=== PATIENT | male | born 1960 | race Caucasian/White ===

== ENCOUNTER → 2016-12-08 | Day surgery (SDC) | payer OTHER ==
[~2016-12-08] VITALS: Ht 185.4 cm; Wt 150.0 kg
[~2016-12-08] MED LIST: ACETAMINOPHEN 325 MG TAB PO PRN; ALPR-411 PO; ASCO100061 PO; ATROPINE SULFATE 0.1 MG/ML 5ML SYR IV PRN; CLON0.2T PO; CLOP1TAB15 PO; CRS/10 PO; HEPARIN SOD (PORCINE) 1000 UNIT/ML 10 ML VIAL ONE; HYG/25 PO; ISOS60TA25 PO; LISI-461 PO; METH2.5T PO; METO50TA16 PO; MIDAZOLAM HCL 1 MG/ML 2ML VIAL ONE; NITROGLYCERIN/D5W 100MCG/ML 20ML SYR ONE; NTRSL3 UT; NiCARDipine HCL INJ 2.5 MG/ML 10 ML AMP ONE; ONDANSETRON INJ 2 MG/ML 2 ML VIAL IV PRN; SODIUM CHLORIDE 0.9% 1000ML 1,000 ML IV SCH; SODIUM CHLORIDE 0.9% 1000ML 250 ML IV PRN; VNTHFA/IN INH
[2016-12-08 06:55] VITALS: BP 117/45; PULSE 47; TEMP 36.4; O2SAT 96; Ht 185.4 cm; Wt 150.0 kg
--- NOTE | 2016-12-08 10:33 | History & Physical Bridge Note ---
H&P Re-Evaluation Bridge Note: I have examined the patient, reviewed the History & Physical and in the interval since the performance of the History & Physical I have noted the following changes of clinical significance: No changes noted
--- NOTE | 2016-12-08 10:54 | Cardiac Catheterization ---
Procedure Note Procedure Date December 08, 2016. Pre-Procedure Diagnosis Angina AUC Score 6 Post-Procedure Diagnosis Severe CAD, Normal LV Systolic Function, Normal Intracardiac Pressures Procedure(s) Performed Coronary Angiography, Left Heart Cath, LV Angiography Lieutenant/Deputy Dr. Borja Accredited Farm Manager(s) None Estimated Blood Loss None Medication(s) Versed, Lidocaine 1% Summary of Findings Occluded proximal RCA. Left to Right Collaterals. 50% distal LMT. LAD stent patent. Normal LV function. Moderate MR Hemodynamics Rest Ao: 101/53 Final Ao: 112/57 LV: 103/7 Recommendations management recommendations (Consider high risk PCI at [facility] [place] Specimens None Radiation Exposure (mGy) 2126 Contrast (mls) 158 Procedural Complication(s) None Disposition Web Developer Holding/Recovery ACC Data Cardiac Status Clinical evaluation leading to the procedure CAD Presntation: Stable angina Anginal Classification: CCS III Heart Failure: No Cardiogenic Shock w/in 24Hrs: No Cardiac Arrest w/in 24Hrs: No Imaging studies past 6 months: Yes Stress studies past 6 months: No Coronary Anatomy Dominant: Right Left Main (% Stenosis): Mid (50) RCA (% Stenosis): Proximal (100) Left Ventricular Angiography EF (%): 60 Mitral Regurgitation: 2+ Diagnostic Status: Elective Closure Device Percutaneous Entry Location: Radial Closure Device: Radial Band
--- NOTE | 2016-12-08 10:56 | Procedure Note ---
Pre-Mod Sedation Assessment General Date of Moderate Sedation: December 08, 2016. Start 10:09. Stop 10:28. Vital Signs: Vital Signs Past 12 Hours Date Time Temp Pulse Resp B/P Pulse Ox O2 Delivery O2 Flow Rate FiO2 12/08/16 06:55 36.4 47 16 117/45 96 Room Air Review Cardiovascular: regular rate, rhythm, no edema, no gallop, no JVD, no murmur, normal peripheral pulses Abdomen: normal bowel sounds, non tender, soft, no organomegaly Lungs: lungs clear Airway Class: I Pre-Sedation Airway Assessment Oral Cavity: WNL Able to Visualize Vocal Cords: No Short Thick Neck: Yes Hx of Sleep Apnea: Yes Smoking Status: Never Smoker Mallampati Classification: Class II ASA Classification: Class I Procedure Planning Contraindications-for Mod Sed: None Yes Notes The planned sedation has been discussed with the patient and consent obtained. I have identified the patient, determined the appropriateness of sedation and have assessed the patient immediately prior to the procedure. All medicine(s) and interventions are by my order.
--- NOTE | 2016-12-08 10:57 | Procedure Note ---
Post-Mod Sedation Assessment General Date of Moderate Sedation December 08, 2016. Vital Signs: Vital Signs Past 12 Hours Date Time Temp Pulse Resp B/P Pulse Ox O2 Delivery O2 Flow Rate FiO2 12/08/16 06:55 36.4 47 16 117/45 96 Room Air Review - Discharge Criteria Vital Signs Stable: Yes Alert/Oriented/Conversant: Yes Returned to Baseline Mental St: Yes Nausea Absent/Minimal: Yes Pain/Discomfort/Absent/Minimal: Yes Normal/Baseline Respirations: Yes Active Bleeding?: Yes Pt Received D/C Instructions: Yes Prescriptions Given: None Specific Proced. D/C Criteria Distal Pulses Present (Cardiac: Yes Groin site assessed-Card Cath: Yes Voided Prior To Discharge: Yes Discharged Patients Adult Escort/Transportation: Yes
--- NOTE | 2016-12-08 12:05 | Discharge Instructions ---
Discharge Instructions Procedure Procedure Date: December 08, 2016. Reason for Visit: *Dr Borja To Do* Chest Pain. Discharge Discharge Date: December 08, 2016. Discharge Diagnosis: same Last Recorded Wt (Kilograms): 150 Anesthesia Post Anesthesia Instructions: If you have had General Anesthesia or IV Sedation: * Do not drive today. * Resume driving when surgeon permits. * Do not make important decisions or sign legal documents today. * Call surgeon for: 1. Temperature elevations greater than 101 degrees F. 2. Uncontrollable pain. 3. Excessive bleeding. 4. Persistent nausea and vomiting. 5. Medication intolerance (nausea, vomiting or rash). * For nausea and vomiting use only clear liquids such as: tea, soda, bouillon until nausea subsides, then gradually increase diet as tolerated. * If you have any concerns or questions, call your surgeon's office. If physician is unavailable and it is an emergency, call 911 or go to the nearest emergency room. Instructions Activity Recommendations: limitations Return to School/Work: with no limitations Recommended Home Diet: resume previous diet Allergies: Coded Allergies: Propofol (Unverified Allergy, Mild, GI SYMPTOMS, 12/08/16) Fluticasone (Verified Allergy, Unknown, SHORTNESS OF BREATH, 12/08/16) Salmeterol (Verified Allergy, Unknown, SHORTNESS OF BREATH, 12/08/16) Provider Instructions ACTIVITY RECOMMENDATIONS: Excess manipulation of the wrist should be avoided for the next 24-48 hours. * No lifting over 2 pounds (approximately a 1/2 gallon of milk) with the utilized arm for 24 hours. * No strenuous activity such as bowling or tennis for 3 days. * Keep the site of the procedure covered with a bandage for 24 hours. *You may shower the day after the procedure. Do not take a tub bath or submerge the puncture site in water for the next 3 days. *Do not operate any motorized equipment for 3 days. SPECIAL CARE INSTRUCTIONS: The site may be slightly bruised and sore following your procedure. Should any of the following occur, contact the DrMary who performed your procedure. 1. Redness/inflammation, swelling, chills, or fever, or colored drainage at procedure site within 3-7 days after your procedure. 2. Coldness, discoloration, ongoing numbness, severe pain, or swelling. Expect mild tingling of hand and tenderness at the puncture site for up to three days. If this persists beyond three days, or other symptoms develop, notify the Dr. who performed your procedure. BLEEDING: If the procedure site on your wrist begins to bleed, do not panic 1. Place 1 or 2 fingers firmly just slightly above the insertion site to stop the bleeding. You may be able to feel your pulse as you hold pressure. 2. Lift your finger after 5 minutes to see if the bleeding has stopped. 3. Once the bleeding has stopped, gently wipe the wrist area clean with a bandage. * If the bleeding from your wrist does not stop after 10 minutes, or if there is a large amount of bleeding or spurting, call 911 (do not drive yourself to the hospital). SKIN IRRITATION: * You may experience some redness and/or swelling in the area where radiation was administered. If any skin irritation occurs, please contact your family physician. FOLLOW UP VISIT: Keep any scheduled doctor appointments. Follow Up Follow-up with: Office will call regarding follow-up. Abril Guerin Recommendations: Call your doctor if: * Temperature above 101 degrees * Pain not relieved by pain medicine ordered * There is increased drainage or redness from any incision * You have any unanswered questions or concerns. Your Doctors Instructions noted above were prepared by provider Best Borja. Patient Signature Section: Patient Instructions Signature Page Negro Jo Patient (or Guardian) Signature/Date: I have read and understand the instructions given to me by my caregivers. Caregiver/RN/Doctor Signature/Date: The above-named patient and/or guardian has received patient instructions on this date. + Original Patient Signature Page (only) stays with chart. Please make copy for patient.
[2016-12-08 13:00] VITALS: BP 135/71; PULSE 61; O2SAT 96
--- NOTE | 2016-12-08 13:59 | CARDIAC CATH REPORT ---
PROCEDURES: 1. Left heart catheterization. 2. Coronary angiography. 3. Left ventriculography. HISTORY: This is a 56-year-old male patient with known coronary artery disease, previous stents including the LAD and most recently right coronary artery in March 2017 at [facility]. The patient presented with angina equivalent shortness of breath. PROCEDURE SUMMARY: The patient was seen and evaluated in the holding area of the medical laboratory technologist. After informed consent was obtained, the patient was taken to the cardiac catheterization lab where he was prepped and draped in the usual manner. A right transfemoral approach was utilized with a retrograde Seldinger technique. Preformed 5-[place] diagnostic catheters were utilized for the coronary angiograms. A 5-[place] pigtail catheter was utilized for the left ventriculogram. Following the procedure, the patient was returned to the holding area of the medical laboratory technologist in stable condition. CORONARY ANGIOGRAPHY: Selective injections of the left coronary artery reveal a tapering of the left main trunk to 50% distally. Under fluoroscopy, the coronary anatomy is calcified. There is evidence of a previous stent within the mid distal portion of the LAD which is patent. The left circumflex artery consists principally of first large marginal branch supplying the lateral myocardium and a second smaller marginal branch supplying the posterior myocardium. Injections of the left coronary system revealed rich collateral flow to a large distal right coronary artery. Selective injections of the right coronary artery reveal it to be occluded at its origin with evidence of previous coronary stent placed at that site. LEFT VENTRICULOGRAM: The left ventricle is of normal size with normal systolic function. There is evidence of mitral regurgitation; however, the mitral regurgitation may have been created by the catheter or by PVCs during the ventriculogram. SUMMARY: The patient has calcified coronary anatomy with diffuse nonobstructive coronary artery disease with the exception of the right coronary artery where a previous stent was placed proximally is now 100% occluded with a rich left to right collateral flow. The previous stent site in the LAD is patent. There is also a 50% tapering of the left main trunk distally. LV function appears to be preserved. RECOMMENDATIONS: We will have the CAT films reviewed in [place] for possible complete total occlusion high risk angioplasty on the right coronary artery. I will also repeat the echocardiogram before the patient leaves to go home. Our echocardiogram from the office suggested no mitral regurgitation, but on the left ventriculogram there appears to be the mitral regurgitation which may be catheter induced or PVC induced but since the patient presented with shortness of breath we should evaluate for mitral regurgitation.
--- NOTE | 2016-12-08 14:21 | ECHOCARDIOGRAM REPORT ---
*NOTICE TO RECEIVING DEMOCRAT AGENCY This information is strictly Confidential and protected under [place] law. [place] law prohibits you from making any further disclosure of this information unless further disclosure is expressly permitted by the written consent of the person to whom it pertains or is authorized by law. A general authorization for the release of medical or other information is not sufficient for this purpose. Hospital accepts no responsibility if the information is made available to any other person, INCLUDING THE PATIENT. Interpretation Summary * Name: RODO HOPSON Study Date: 12/08/2016 11:29 AM BP: 129/62 mmHg * Patient Location: C.CATH HR: 57 * : 1960 (M/d/yyyy) Gender: Male Height: 73 in * Age: 56 yrs Ethnicity: [place] Weight: 330 lb * Ordering Physician: Best Borja * Referring Physician: Best Borja * Performed By: Jessica Duong RDCS * * Reason For Study: Murmurs * BSA: 2.7 m2 * -- Conclusions -- * Aortic valve sclerosis mild, without significant aortic valvular stenosis. * Significant mitral regurgitation is absent. * Significant tricuspid regurgitation is absent. * There is mild concentric left ventricular hypertrophy. * Ejection Fraction = >70 %. Procedure Details * A complete two-dimensional transthoracic echocardiogram was performed (2D, M-mode, Doppler and color flow Doppler). * A contrast injection of Definity was performed to improve assessment of LV function. * Contrast was injected into an intravenous site in the left arm. * One vial of Definity ultrasound contrast was diluted in normal saline to a total volume of 10 ml. A total of '2' ml of solution was administered during imaging. * Lot # [id number] of Definity utilized for procedure. * Expiration date DEC 27. * The attending nurse who injected the contrast agent was Merissa Velazquez RN. Left Ventricle * The left ventricle is normal in size. * There is mild concentric left ventricular hypertrophy. * Ejection Fraction = >70 %. * The left ventricular wall motion is normal. Right Ventricle * The right ventricle is normal size. Atria * The left atrial size is normal. * Right atrial size is normal. * The interatrial septum is intact with no evidence for an atrial septal defect. Mitral Valve * There is mild to moderate mitral annular calcification. * The mitral valve leaflets appear thickened, but open well. * Significant mitral regurgitation is absent. Tricuspid Valve * The tricuspid valve is not well visualized, but is grossly normal. * Significant tricuspid regurgitation is absent. Aortic Valve * Aortic valve sclerosis mild, without significant aortic valvular stenosis. * There is no significant aortic regurgitation. Pulmonic Valve * The pulmonic valve is not well visualized. * There is no significant pulmonary regurgitation. Great Vessels * The aortic root and proximal ascending aorta are normal sized. Pericardium/Pleural * There is no pericardial effusion. MMode 2D Measurements and Calculations IVSd 1.4 cm LVIDd 4.5 cm LVIDs 2.6 cm LVPWd 1.2 cm IVS/LVPW 1.1 FS 42.4 % EDV(Teich) 94.3 ml ESV(Teich) 24.9 ml EF(Teich) 73.6 % EDV(cubed) 93.5 ml ESV(cubed) 17.8 ml EF(cubed) 80.9 % LV mass(C)d 232.1 grams LV mass(C)dI 87.2 grams/m\S\2 SV(Teich) 69.4 ml SI(Teich) 26.1 ml/m\S\2 SV(cubed) 75.7 ml SI(cubed) 28.4 ml/m\S\2 Ao root diam 3.6 cm Ao root area 10.1 cm\S\2 ACS 2.1 cm LA dimension 3.9 cm asc Aorta Diam 4.0 cm LA/Ao 1.1 LVAd ap4 33.8 cm\S\2 LVLd ap4 8.5 cm EDV(MOD-sp4) 110.9 ml EDV(sp4-el) 113.6 ml LVAs ap4 16.2 cm\S\2 LVLs ap4 6.7 cm ESV(MOD-sp4) 32.2 ml ESV(sp4-el) 33.0 ml EF(MOD-sp4) 71.0 % EF(sp4-el) 71.0 % LVAd ap2 28.9 cm\S\2 LVLd ap2 8.0 cm EDV(MOD-sp2) 86.5 ml EDV(sp2-el) 88.9 ml LVAs ap2 13.1 cm\S\2 LVLs ap2 5.3 cm ESV(MOD-sp2) 26.7 ml ESV(sp2-el) 27.3 ml EF(MOD-sp2) 69.1 % EF(sp2-el) 69.2 % LVLd %diff -6.95 % EDV(MOD-bp) 101.3 ml LVLs %diff -26.86 % ESV(MOD-bp) 32.9 ml EF(MOD-bp) 67.5 % SV(MOD-sp4) 78.8 ml SI(MOD-sp4) 29.6 ml/m\S\2 SV(MOD-sp2) 59.8 ml SI(MOD-sp2) 22.4 ml/m\S\2 SV(MOD-bp) 68.4 ml SI(MOD-bp) 25.7 ml/m\S\2 SV(sp4-el) 80.6 ml SI(sp4-el) 30.3 ml/m\S\2 SV(sp2-el) 61.5 ml SI(sp2-el) 23.1 ml/m\S\2 Doppler Measurements and Calculations MV E max leanna 78.6 cm/sec MV A max leanna 66.5 cm/sec MV E/A 1.2 MV dec time 0.30 sec Ao V2 max 164.4 cm/sec Ao max PG 10.8 mmHg Ao max PG (full) 2.6 mmHg LV V1 max PG 8.2 mmHg LV V1 max 143.1 cm/sec PA V2 max 119.4 cm/sec PA max PG 5.7 mmHg PA acc slope 595.7 cm/sec\S\2 PA acc time 0.13 sec PA pr(Accel) 20.4 mmHg
== END | disposition home or self-care (01) ==
LOC: C.CATH 06:22
PROVIDERS: ATTEND Internal Medicine Interventional Cardiology
DX: I25.10 Atherosclerotic heart disease of native coronary artery without angina pectoris (principal); E78.5 Hyperlipidemia, unspecified; F41.1 Generalized anxiety disorder; M13.0 Polyarthritis, unspecified; N18.3 Chronic kidney disease, stage 3 (moderate); I12.9 Hypertensive chronic kidney disease with stage 1 through stage 4 chronic kidney disease, or unspecified chronic kidney disease; Z82.49 Family history of ischemic heart disease and other diseases of the circulatory system; Z82.3 Family history of stroke; Z82.0 Family history of epilepsy and other diseases of the nervous system; E78.00 Pure hypercholesterolemia, unspecified; E66.9 Obesity, unspecified; I25.2 Old myocardial infarction

== ENCOUNTER 2017-01-17 14:34 | Observation (INO) | payer OTHER ==
[~2017-01-17] VITALS: Ht 182.9 cm; Wt 150.1 kg
[~2017-01-17 14:34] MED LIST changes: -ACETAMINOPHEN 325 MG TAB PO PRN; -ATROPINE SULFATE 0.1 MG/ML 5ML SYR IV PRN; -HEPARIN SOD (PORCINE) 1000 UNIT/ML 10 ML VIAL ONE; -MIDAZOLAM HCL 1 MG/ML 2ML VIAL ONE; -NITROGLYCERIN/D5W 100MCG/ML 20ML SYR ONE; -NiCARDipine HCL INJ 2.5 MG/ML 10 ML AMP ONE; -ONDANSETRON INJ 2 MG/ML 2 ML VIAL IV PRN; -SODIUM CHLORIDE 0.9% 1000ML 1,000 ML IV SCH; -SODIUM CHLORIDE 0.9% 1000ML 250 ML IV PRN
[2017-01-17 18:38] VITALS: BP 187/89; PULSE 53; TEMP 36.3; O2SAT 99; Ht 182.9 cm; Wt 150.1 kg
[2017-01-17] MEDS ORDERED: MoRPHine SULFATE 2 MG/ML CARP IV PRN (19:45)
[2017-01-17] MEDS ORDERED: ACETAMINOPHEN 325 MG TAB PO PRN (19:45)
[2017-01-17] MEDS ORDERED: ONDANSETRON INJ 2 MG/ML 2 ML VIAL IV PRN (19:45)
[2017-01-17] MEDS ORDERED: NITROGLYCERIN 0.4 MG SL PER TAB CHARGE SL PRN (19:45)
[2017-01-17 20:00] VITALS: BP 177/85; PULSE 57
[2017-01-17] MEDS ORDERED: NITROGLYCERIN 0.3 MG/1 TAB 100 TAB BTL UT PRN (20:00)
[2017-01-17] MEDS ORDERED: ALBUTEROL HFA 8 GM INHALER INH PRN (20:00)
[2017-01-17 20:14] LABS: BASO % 0.5 %; BASO ABS # 0.05 K/uL (0-0.2); COMPLETE YES; EOS % 4.4 %; IG% 0.3 %; LYMPH % 13.2 %; LYMPH ABS # 1.32 K/uL (1.2-3.4); MEAN CELL VOLUME 91.1 fL (80-100); MEAN CORPUSCULAR HGB CONC 35.1 g/dl (32-36); MEAN PLATELET VOLUME 9.8 fL (7.4-10.4); MONO % 9.7 %; NEUT % 71.9 %; PLATELET COUNT 186 K/uL (130-400); RED BLOOD COUNT 4.28 M/uL (4.7-6.1); WHITE BLOOD COUNT 10.02 K/uL (4.8-10.8)
[2017-01-17 20:25] LABS: INR 1.1 (0.9-1.1); PROTHROMBIN TIME (PATIENT) 11.4 SECONDS (9.0-12.0)
[2017-01-17 20:40] LABS: BUN/CREATININE RATIO 20.6 (10-20); CALCIUM 9.2 mg/dl (8.5-10.1); CREATININE 1.2 mg/dl (0.60-1.40); POTASSIUM 4.6 mmol/L (3.5-5.1)
[2017-01-17] MEDS ORDERED: IV FLUIDS COMPLETED PRN (20:45)
[2017-01-17] MEDS ORDERED: ASPIRIN 81 MG ECTAB PO ONE (20:45)
[2017-01-17] MEDS ORDERED: CLONIDINE HCL 0.1 MG TAB PO SCH (21:00)
[2017-01-17] MEDS: ALPRAZOLAM 0.5 MG TAB PO SCH (22:00)
[2017-01-17] MEDS: METOPROLOL TARTRATE 50 MG TAB PO SCH (22:07)
[2017-01-17] MEDS: LISINOPRIL 10 MG TAB PO SCH (22:08)
--- NOTE | 2017-01-17 22:51 | History and Physical ---
History & Physical Date & Time of Service: Jan 17, 2017 at 19:46 Chief Complaint: Elevated Troponin, Syncope Primary Care Physician: Romeo Price History of Present Illness Source: patient, clinic records, hospital records 56 yo M with severe CAD presents via transfer from [place] [facility] for NSTEMI. He was at [facility] today and reports feeling lightheaded after standing up , subsequently lost consciousness and fell into his car door and hit the pavement face first, breaking his nose. He takes ASA and Plavix and was profusely bleeding so EMS was called and he went to [place] [facility]. In the ER a troponin was elevated to 1.9. The patient was, and remains, symptom-free with respect to chest pain and shortness of breath. He does report intermittent lightheadedness for which he stops and rests, and then it will go away momentarily. He reports this became more noticeable after his Imdur was increased from 60mg to 120mg on 12/30. He has a h/o heart problems beginning in 2004 with multiple cardiac catheterizations, and subsequently received a stent in Jul 2015 and then two in Aug 2015. He then had an NSTEMI in Mar 2016 and underwent another cath with PCI. He established care with Dr. Borja in November 2016 who performed a LHC on him revealing 50% LM blockage, RCA in-stent stenosis of 100% with collateral flow, a patent stent in the LAD and diffuse non -obstructive disease. He was then referred to Dr. Flores in [place] for further assessment and options. Another diagnostic LHC was performed on 12/30, but per the patient, bypass is not an option at this point and he is left with minimal options aside from medical management. He is currently HD stable with a slightly elevated BP. He is ambulatory and is mentating well. He was admitted to telemetry for further monitoring overnight. EKG at OSH revealed SB without ST changes. Nasal lac was closed with sutures and a bandage was placed. CT head performed at OSH with disc sent. Nasal bone fracture is present with some fragmentation. No active bleeding from wound. Case was discussed with Dr. Johnson instructional support technician who will see him in the morning. Heparin therapy was discussed if needed. Past Medical/Surgical History Medical Problems: (1) CAD (coronary artery disease) Status: Chronic (2) Chronic tonsillar hypertrophy Status: Chronic (3) CKD (chronic kidney disease), stage III Status: Chronic (4) Dyslipidemia Status: Chronic (5) GCA (giant cell arteritis) Status: Chronic (6) HTN (hypertension) Status: Chronic (7) Impaired fasting glucose Status: Chronic (8) NSTEMI (non-ST elevated myocardial infarction) Status: Chronic (9) Polyarthropathy or polyarthritis of multiple sites Status: Chronic (10) Recurrent acute sinusitis Status: Chronic (11) TMJ (temporomandibular joint disorder) Status: Chronic Surgical Problems: (1) H/O umbilical hernia repair Status: Chronic Family History FH: Alzheimers disease MOTHER FH: CAD (coronary artery disease) FATHER, Onset:50 MOTHER FH: stroke FATHER Social History Smoking Status: Never Smoker Smokeless Tobacco Use: No Alcohol Use: socially Drug Use: none Marital Status: Housing status: lives with significant other Occupational Status: retired Immunizations History of Influenza Vaccine: Unknown History of Tetanus Vaccine?: Yes Tetanus Immunization Date: Dec 11, 2007 History of Pneumococcal: Unknown History of Hepatitis B Vaccine: Unknown Multi-Drug Resistant Organisms History of MDRO: No Allergies Coded Allergies: Propofol (Unverified Allergy, Mild, GI SYMPTOMS, 12/08/16) Fluticasone (Verified Allergy, Unknown, SHORTNESS OF BREATH, 12/08/16) Salmeterol (Verified Allergy, Unknown, SHORTNESS OF BREATH, 12/08/16) Home Medications Scheduled Alprazolam (Xanax), 0.5 MG PO prn Ascorbic Acid (Ascorbic Acid), 1 TAB PO DAILY Chlorthalidone (Hygroton), 1 TAB PO DAILY Clonidine Hcl (Catapres), 1 TAB PO DAILY Clopidogrel (Plavix), 75 MG PO DAILY Isosorbide Mononitrate Ext Rel (Imdur Ext Rel), 60 MG PO QAM Lisinopril (Zestril), 2 TAB PO BID Methotrexate Sodium (Methotrexate), 8 TAB PO WK Metoprolol Tartrate (Lopressor) (Lopressor), 75 MG PO BID Nitroglycerin (Nitrostat), 0.3 MG UT PRN Rosuvastatin Calcium (Crestor), 1 TAB PO DAILY Scheduled PRN Albuterol Hfa (Ventolin Hfa), 2-4 PUFFS INH Q6H PRN for prn Review of Systems At least ten systems were reviewed and negative except as indicated in HPI and patient has a headache that is intermittent. Physical Exam Vital Signs Date Time Temp Pulse Resp B/P (MAP) Pulse Ox O2 Delivery O2 Flow Rate FiO2 01/17/17 18:38 36.3 53 16 187/89 99 Room Air GEN: WNWD, in no acute distress, alert and appropriate, sitting up on edge of bed, no conversational dyspnea HEENT: trauma to nose with bandage covering sutures, hemostasis achieved, bandage is c/d/i, PERRL, normal sclerae/conjunctivae, soreness to zygomatic arches and sinuses bilaterally. Some soreness with palpation of frontal sinuses. Pharynx nonacute. CARDIO: reg rate, S1/2 heard without m/g/r LUNGS: CTA bilaterally, no crackles, rales or wheezes, good diaphragmatic excursion ABD: soft, non-tender, non-distended, +BS EXTREMITY: RP and DP palpable 2+ bilat, no LE swelling or edema, extremities are warm and well-perfused NEURO: CN 2-12 grossly intact, sensation intact throughout, coordination intact , (reflexes) knee 2/4 bilat MUSC: 5/5 strength throughout, moves all extremities equally SKIN: warm and dry and wound as above. Diagnostics Laboratory Results 01/17/17 19:57 Red Blood Count 4.28, Mean Corpuscular Volume 91.1, Mean Corpuscular Hemoglobin 32.0, Mean Corpuscular Hemoglobin Concent 35.1, Mean Platelet Volume 9.8, Neutrophils (%) (Auto) 71.9, Lymphocytes (%) (Auto) 13.2, Monocytes (%) (Auto) 9.7, Eosinophils (%) (Auto) 4.4, Basophils (%) (Auto) 0.5, Neutrophils # (Auto) 7.21, Lymphocytes # (Auto) 1.32, Monocytes # (Auto) 0.97, Eosinophils # (Auto) 0.44, Basophils # (Auto) 0.05 01/17/17 19:57 Test 01/17/17 19:36 01/17/17 19:57 White Blood Count 10.02 K/uL (4.8-10.8) Red Blood Count 4.28 M/uL (4.7-6.1) Hemoglobin 13.7 g/dL (14.0-18.0) Hematocrit 39.0 % (42-52) Mean Corpuscular Volume 91.1 fL (80-100) Mean Corpuscular Hemoglobin 32.0 pg (25-34) Mean Corpuscular Hemoglobin Concent 35.1 g/dl (32-36) Platelet Count 186 K/uL (130-400) Mean Platelet Volume 9.8 fL (7.4-10.4) Neutrophils (%) (Auto) 71.9 % Lymphocytes (%) (Auto) 13.2 % Monocytes (%) (Auto) 9.7 % Eosinophils (%) (Auto) 4.4 % Basophils (%) (Auto) 0.5 % Neutrophils # (Auto) 7.21 K/uL (1.4-6.5) Lymphocytes # (Auto) 1.32 K/uL (1.2-3.4) Monocytes # (Auto) 0.97 K/uL (0.11-0.59) Eosinophils # (Auto) 0.44 K/uL (0-0.5) Basophils # (Auto) 0.05 K/uL (0-0.2) RDW Standard Deviation 45.3 fL (36.4-46.3) RDW Coefficient of Variation 14.0 % (11.5-14.5) Immature Granulocyte % (Auto) 0.3 % Immature Granulocyte # (Auto) 0.03 K/uL (0.00-0.02) Prothrombin Time 11.4 SECONDS (9.0-12.0) Prothromb Time International Ratio 1.1 (0.9-1.1) Anion Gap 8.0 mmol/L (3-11) Est Creatinine Clear Calc Drug Dose 102.2 ml/min Estimated GFR () 76.8 Estimated GFR (Non- 66.3 BUN/Creatinine Ratio 20.6 (10-20) Calcium Level 9.2 mg/dl (8.5-10.1) Total Bilirubin 0.5 mg/dl (0.2-1) Aspartate Amino Transf (AST/SGOT) 73 U/L (15-37) Alanine Aminotransferase (ALT/SGPT) 116 U/L (12-78) Alkaline Phosphatase 116 U/L (45-117) Total Creatine Kinase 205 U/L (39-308) Creatine Kinase MB 6.2 ng/ml (0.5-3.6) Creatine Kinase MB Ratio 3.0 (0-3.0) Troponin I 1.840 ng/ml (0-0.045) Total Protein 7.5 gm/dl (6.4-8.2) Albumin 3.7 gm/dl (3.4-5.0) Globulin 3.8 gm/dl (2.5-4.0) Albumin/Globulin Ratio 1.0 (0.9-2) Diagnostic Radiology CT Head (01/17/17-OSH)-nasal fracture CXR (01/17/17-OSH)-no acute process EKG SB [address] changes. Impression Assessment and Plan 56 yo M with significant CAD presents with syncope, subsequent nasal fracture and found to have NSTEMI in local ER, transferred to [facility] for definitive care. 1. NSTEMI-patient has known significant heart disease with two recent heart catheterizations over the last two months. He was incidentally found to have an elevated troponin and has been without symptoms of chest pain or shortness of breath. The syncope, although concerning, may be related to his Imdur dosage increase after his last LHC in December. However, as this may also be related to arrythmia will watch closely on telemetry and have a low threshold to load with amiodarone per discussion with Cardiology. The patient reports only taking ASA 81 today, so will give additional ASA now and cont current medical therapy including Plavix, metoprolol, crestor, lisinopril and aspirin. Hold on starting heparin at this time unless trop rise, evidence of ischemic changes on EKG, or patient becomes symptomatic. Cards to see in am. Nitro/ Morphine PRN. NPO p MN in case of procedure in am. 2. Syncope-likely related to orthostatic hypotension related to Imdur increase with history of positional lightheadedness occurring more since this change. Decreased dose of Imdur back to 60mg. Orthostatics were negative at OSH. Monitor on telemetry overnight. Last TTE was in November and did not reveal structural heart disease with a normal EF. Repeat TTE in am. 3. HTN-slightly elevated on arrival. Will recheck after pm medications. Of note, admission med rec reveals that he is prescribed clonidine 0.2mg BID but is only taking it once daily. 4. GCA/polyarthritis-managed by Rheumatology as outpatient. Cont MTX every Wednesday. No acute issues at this time. 5. Anxiety-Xanax PRN 6. CKD III-stable, creat at baseline. Avoid nephrotoxic substances as able and renally dose meds. 7. Obesity DVT proph-heparin because of size of patient and h/o CKD FULL CODE Dispo-telemetry [facility] Care Telemetry Advanced Directives Existing Living Will: No Existing Power of Behavioral Services Tech: No Resuscitation Status FULL RESUSCITATION VTE Prophylaxis VTE Risk Assessment Done? Y/N: Yes Risk Level: Moderate Given or contraindicated: Unfractionated heparin SQ Additional Copies To Romeo Price
[2017-01-17 22:59] LABS: URINE APPEARANCE CLEAR (CLEAR); URINE BILIRUBIN NEG (NEG); URINE COLOR YELLOW; URINE NITRITE NEG (NEG); URINE PH 5.5 (4.5-7.5); URINE SPECIFIC GRAVITY 1.016 (1.000-1.030); UROBILINOGEN NEG (NEG)
[2017-01-17 23:12] LABS: MANUAL MICROSCOPIC REQUIRED? NO; REVIEW REQ? NO
[2017-01-18 00:01] VITALS: BP 168/82; PULSE 51; TEMP 36.7; O2SAT 96
[2017-01-18 02:43] LABS: CKMB/CK RATIO 2.2 (0-3.0)
[2017-01-18 04:00] VITALS: BP 179/71; PULSE 56; TEMP 36.3; O2SAT 98
[2017-01-18] MEDS: ALPRAZOLAM 0.5 MG TAB PO SCH (06:00)
[2017-01-18] MEDS ORDERED: HEPARIN SOD 5000 UNIT/0.5 ML CARP SQ SCH (06:00)
[2017-01-18 06:28] LABS: MEAN CELL VOLUME 90.9 fL (80-100); MEAN CORPUSCULAR HGB CONC 34.1 g/dl (32-36); MEAN PLATELET VOLUME 9.8 fL (7.4-10.4); PLATELET COUNT 179 K/uL (130-400); RED BLOOD COUNT 4.29 M/uL (4.7-6.1); WHITE BLOOD COUNT 9.29 K/uL (4.8-10.8)
[2017-01-18 06:56] LABS: BUN/CREATININE RATIO 22.3 (10-20); CALCIUM 9.1 mg/dl (8.5-10.1); CREATININE 1.2 mg/dl (0.60-1.40); POTASSIUM 4.5 mmol/L (3.5-5.1)
[2017-01-18 07:02] LABS: CHOLESTEROL/HDL RATIO 4.7
[2017-01-18 07:35] VITALS: BP 203/92; PULSE 55; TEMP 36.5; O2SAT 98
[2017-01-18] MEDS: LISINOPRIL 10 MG TAB PO SCH (07:52)
[2017-01-18] MEDS ORDERED: ISOSORBIDE MONONITRATE 60 MG TABCR PO SCH (09:00)
[2017-01-18] MEDS ORDERED: ROSUVASTATIN CALCIUM 10 MG TAB PO SCH (09:00)
[2017-01-18] MEDS ORDERED: ASCORBIC ACID 500 MG TAB PO SCH (09:00)
[2017-01-18] MEDS ORDERED: CHLORTHALIDONE 25 MG TAB PO SCH (09:00)
[2017-01-18] MEDS ORDERED: CLOPIDOGREL BISULFATE 75 MG TAB PO SCH (09:00)
--- NOTE | 2017-01-18 09:04 | Pre-Operative Consultation ---
History General Date of Service: Jan 18, 2017. (Kaylie Childers PA-C) HPI HPI: The patient is a 56 year old male being seen in consultation of nasal fracture. The patient has history of feeling lightheaded and subsequently falling into a car door then hitting the pavement yesterday. He went to the [place] [facility] for profuse bleeding from his nose and had 3 sutures placed along his nasal bridge, and dressing placed over remainder of nose. While there, the patient was found to have elevated troponin levels and NSTEMI and was then transferred to [facility]. He has significant cardiac history including multiple cardiac catheterizations and stenting procedures, as well as, another NSTEMI in Mar 2016. He has currently been managing his cardiac history using medical management that includes ASA and Plavix. The patient denies any difficulty breathing through his nose. He does admit to some point tenderness under his right eye. He is unsure if his nose appeared crooked before reecnt injury, but admits to a history of deviated septum. He denies CP, SOB, difficulty swallowing. Historian: patient (Kaylie Childers PA-C) Risk Assessment Daily beta benjamin use?: Yes (Kaylie Childers PA-C) Problem List Medical Problems: (1) CAD (coronary artery disease) Status: Chronic (2) Chronic tonsillar hypertrophy Status: Chronic (3) CKD (chronic kidney disease), stage III Status: Chronic (4) Dyslipidemia Status: Chronic (5) GCA (giant cell arteritis) Status: Chronic (6) HTN (hypertension) Status: Chronic (7) Impaired fasting glucose Status: Chronic (8) NSTEMI (non-ST elevated myocardial infarction) Status: Chronic (9) Polyarthropathy or polyarthritis of multiple sites Status: Chronic (10) Recurrent acute sinusitis Status: Chronic (11) TMJ (temporomandibular joint disorder) Status: Chronic Surgical Problems: (1) H/O umbilical hernia repair Status: Chronic (Kaylie Childers PA-C) Family History Family History: heart disease, vascular disease, other (alzheimers) (Kaylie Childers PA-C) Social History Hx Tobacco Use In Past Year?: No Smoking Status: Never Smoker Drug Use: none Marital status: Housing status: lives with significant other Occupation status: retired (Kaylie Childers PA-C) Immunizations Have You Had Influenza Vaccine: Unknown Have You Had Tetanus Vaccine: Yes Date Of Tetanus Immunization: Dec 11, 2007 History of Pneumococcal: Unknown History Hepatitis B Vaccine: Unknown (Kaylie Childers PA-C) Allergies Allergies: Coded Allergies: Propofol (Unverified Allergy, Mild, GI SYMPTOMS, 12/08/16) Fluticasone (Verified Allergy, Unknown, SHORTNESS OF BREATH, 12/08/16) Salmeterol (Verified Allergy, Unknown, SHORTNESS OF BREATH, 12/08/16) Medications Current Inpatient Medications Current Inpatient Medications Medications (Trade) Dose Ordered Sig/Coretta Route Start Time Stop Time Status Last Admin Dose Admin Heparin Sodium (Porcine) (Heparin Sq 5000 Unit/0.5ml) 5,000 unit Q8 SQ 01/18/17 06:00 02/17/17 05:59 01/18/17 06:32 5,000 UNIT Acetaminophen (Tylenol Tab) 650 mg Q4H PRN PO 01/17/17 19:45 02/16/17 19:44 Ondansetron HCl (Zofran Inj) 4 mg Q6H PRN IV 01/17/17 19:45 02/16/17 19:44 Nitroglycerin (Nitrostat Tab) 0.4 mg UD PRN SL 01/17/17 19:45 02/16/17 19:44 Morphine Sulfate (MoRPHine SULFATE INJ) 2 mg Q30M PRN IV 01/17/17 19:45 01/31/17 19:44 Albuterol (Ventolin Hfa Inhaler) 2 puffs Q6H PRN INH 01/17/17 20:00 02/16/17 19:59 Alprazolam (Xanax Tab) 0.5 mg Q8 PO 01/17/17 22:00 02/16/17 21:59 Chlorthalidone (Hygroton Tab) 25 mg DAILY PO 01/18/17 09:00 02/17/17 08:59 01/18/17 07:52 25 MG Clopidogrel Bisulfate (plAVix TAB) 75 mg DAILY PO 01/18/17 09:00 02/17/17 08:59 01/18/17 07:52 75 MG Isosorbide Mononitrate (Imdur Ext Rel Tab) 60 mg QAM PO 01/18/17 09:00 02/17/17 08:59 01/18/17 07:52 60 MG Lisinopril (Zestril Tab) 20 mg BID PO 01/17/17 21:00 02/16/17 20:59 01/18/17 07:52 20 MG Metoprolol Tartrate (Lopressor Tab) 75 mg BID PO 01/17/17 21:00 02/16/17 20:59 01/17/17 22:07 75 MG Nitroglycerin (Nitrostat Tab) 0.3 mg PRN PRN UT 01/17/17 20:00 02/16/17 19:59 Rosuvastatin Calcium (Crestor Tab) 10 mg DAILY PO 01/18/17 09:00 02/17/17 08:59 01/18/17 07:52 10 MG Ascorbic Acid (Vitamin C Tab) 1,000 mg QAM PO 01/18/17 09:00 02/17/17 08:59 01/18/17 07:52 1,000 MG Methotrexate (Methotrexate Tab) 20 mg Cary@0900 PO 01/24/17 09:00 02/23/17 08:59 Miscellaneous (Iv Fluids Completed) 1 ea PRN PRN N/A 01/17/17 20:45 01/17/18 20:44 (Kaylie Childers PA-C) Review of Systems Review of Systems Constitutional: no symptoms reported Eyes: reports: other (pain along bone under right eye), denies: visual changes , blurred vision, photophobia ENT: reports: nasal pain, other (feels swollen), denies: dental pain Cardiovascular: denies: no symptoms reported Respiratory: denies: no symptoms reported Gastrointestinal: denies no symptoms reported (Kaylie Childers PA-C) All Other Symptoms All Other Systems: Reviewed and Negative (Kaylie Childers PA-C) Physical Exam Physical Exam General Appearance: + WD/WN, No distress Ears, Nose, Throat: + other (bandage removed revealing sutures along nasal bridge, surgicel packed on nasal tip. No evidence of septal hematoma. evidence of soft tissue edema but nasal bones appear straingt. no tenderness to palpation along orbial rim. patient complains of numbness to cheeks and upper teeth. symmetric smile ) Neck: No abnormal inspection, No limited range of motion Respiratory: No chest tenderness, No accessory muscle use Skin Characteristics: No abnormal color, No cyanosis, No mottling (Kaylie Childers ., FRANK) Diagnostics Labs Labs Results Past 24 Hours Test 01/17/17 19:57 01/17/17 22:40 01/18/17 02:00 01/18/17 06:18 Range/Units White Blood Count 10.02 9.29 4.8-10.8 K/uL Red Blood Count 4.28 4.29 4.7-6.1 M/uL Hemoglobin 13.7 13.3 14.0-18.0 g/dL Hematocrit 39.0 39.0 42-52 % Mean Corpuscular Volume 91.1 90.9 80-100 fL Mean Corpuscular Hemoglobin 32.0 31.0 25-34 pg Mean Corpuscular Hemoglobin Concent 35.1 34.1 32-36 g/dl Platelet Count 186 179 130-400 K/uL Mean Platelet Volume 9.8 9.8 7.4-10.4 fL Neutrophils (%) (Auto) 71.9 % Lymphocytes (%) (Auto) 13.2 % Monocytes (%) (Auto) 9.7 % Eosinophils (%) (Auto) 4.4 % Basophils (%) (Auto) 0.5 % Neutrophils # (Auto) 7.21 1.4-6.5 K/uL Lymphocytes # (Auto) 1.32 1.2-3.4 K/uL Monocytes # (Auto) 0.97 0.11-0.59 K/uL Eosinophils # (Auto) 0.44 0-0.5 K/uL Basophils # (Auto) 0.05 0-0.2 K/uL RDW Standard Deviation 45.3 45.4 36.4-46.3 fL RDW Coefficient of Variation 14.0 14.0 11.5-14.5 % Immature Granulocyte % (Auto) 0.3 % Immature Granulocyte # (Auto) 0.03 0.00-0.02 K/uL Prothrombin Time 11.4 9.0-12.0 SECONDS Prothromb Time International Ratio 1.1 0.9-1.1 Sodium Level 140 137 136-145 mmol/L Potassium Level 4.6 4.5 3.5-5.1 mmol/L Chloride Level 104 104 98-107 mmol/L Carbon Dioxide Level 28 28 21-32 mmol/L Anion Gap 8.0 5.0 3-11 mmol/L Blood Urea Nitrogen 25 27 7-18 mg/dl Creatinine 1.20 1.20 0.60-1.40 mg/dl Est Creatinine Clear Calc Drug Dose 102.2 101.2 ml/min Estimated GFR () 76.8 76.8 Estimated GFR (Non- 66.3 66.3 BUN/Creatinine Ratio 20.6 22.3 10-20 Random Glucose 97 107 70-99 mg/dl Calcium Level 9.2 9.1 8.5-10.1 mg/dl Total Bilirubin 0.5 0.2-1 mg/dl Aspartate Amino Transf (AST/SGOT) 73 15-37 U/L Alanine Aminotransferase (ALT/SGPT) 116 12-78 U/L Alkaline Phosphatase 116 45-117 U/L Total Creatine Kinase 205 184 39-308 U/L Creatine Kinase MB 6.2 4.0 0.5-3.6 ng/ml Creatine Kinase MB Ratio 3.0 2.2 0-3.0 Troponin I 1.840 1.330 0-0.045 ng/ml Total Protein 7.5 6.4-8.2 gm/dl Albumin 3.7 3.4-5.0 gm/dl Globulin 3.8 2.5-4.0 gm/dl Albumin/Globulin Ratio 1.0 0.9-2 Urine Color YELLOW Urine Appearance CLEAR CLEAR Urine pH 5.5 4.5-7.5 Urine Specific Browning 1.016 1.000-1.030 Urine Protein 3+ NEG Urine Glucose (UA) NEG NEG Urine Ketones NEG NEG Urine Occult Blood 1+ NEG Urine Nitrite NEG NEG Urine Bilirubin NEG NEG Urine Urobilinogen NEG NEG Urine Leukocyte Esterase NEG NEG Urine WBC (Auto) 1-5 0-5 /hpf Urine RBC (Auto) 0-4 0-4 /hpf Urine Hyaline Casts (Auto) 1-5 0-5 /lpf Urine Epithelial Cells (Auto) 5-10 0-5 /lpf Urine Bacteria (Auto) NEG NEG Triglycerides Level 303 0-150 mg/dl Cholesterol Level 184 0-200 mg/dl HDL Cholesterol 39 mg/dl LDL Cholesterol, Calculated 84 mg/dl VLDL Cholesterol, Calculated 61 mg/dl Cholesterol/HDL Ratio 4.7 (Kaylie Childers ., FRANK) Diagnostic Radiology Diagnostic Radiology Films not available for review. Will read films when uploaded into [employer]. (Kaylie Childers ., FRANK) Impression Assessment and Plan Assessment and Plan Patient with assumed nasal fracture. Films done in [facility] and not yet available to review. On exam, there is no signficant nasal bone deviation. We explained to the patient that due to his recent NSTEMI and need for ASA and PLavix, would hold off on any surgery for now. We will see him in office in one week to remove sutures from nose and re-evaluate nasal fracture. Will have nurse remove Surgicel from nose prior to discharge to monitor for any bleeding, then have patient apply bacitracin to all wound areas. This was discussed with the patient and all questions answered. (Kaylie Childers ., GAMALC) Assessment and Plan I personally saw and examined this patient at bedside. He sustained a syncopal episode yesterday resulting in nasal fractures. Reports hx of deviated septum. Denies difficulty breathing and notes he has always had septal deviation. Exam shows tenderness over both nasal bones, bones appear midline and there is no septal hematoma. Sutures intact, superficial abrasions noted. CT images were not available at time of consultation. Recommend soap and water, bacitracin to wounds. Will allow swelling to resolve and reassess in office in 1 week. Given recent NSTEMI and chronic anticoagulation, would only plan closed reduction if patient has difficulty breathing or bones appear grossly displaced. (Mishel Johnson MD)
[2017-01-18 11:11] VITALS: BP 158/74; PULSE 56; TEMP 36.8; O2SAT 96
[2017-01-18] MEDS: METOPROLOL TARTRATE 50 MG TAB PO SCH (11:15)
--- NOTE | 2017-01-18 13:07 | ECHOCARDIOGRAM REPORT ---
*NOTICE TO RECEIVING [employer] This information is strictly Confidential and protected under [place] law. [place] law prohibits you from making any further disclosure of this information unless further disclosure is expressly permitted by the written consent of the person to whom it pertains or is authorized by law. A general authorization for the release of medical or other information is not sufficient for this purpose. Hospital accepts no responsibility if the information is made available to any other person, INCLUDING THE PATIENT. Interpretation Summary * Name: RODO HOPSON Study Date: 01/18/2017 06:56 AM BP: 179/71 mmHg * Patient Location: C.2T\S\E215\S\1 HR: 54 * : 1960 (M/d/yyyy) Gender: Male Height: 72 in * Age: 56 yrs Ethnicity: CA Weight: 337 lb * Ordering Physician: Marcela Masters * Referring Physician: Marcela Masters * Performed By: Jessica Duong RDCS * * Reason For Study: AMI * BSA: 2.7 m2 * The study was technically adequate. * -- Conclusions -- * There is mild concentric left ventricular hypertrophy. * No regional wall motion abnormalities noted. * The LV Ejection Fraction = 60-65%. * Aortic valve sclerosis mild, without significant aortic valvular stenosis. * There is mild mitral annular calcification. * There is trace mitral regurgitation. * There is mild tricuspid regurgitation. * Doppler findings do not suggest pulmonary hypertension. * Grade I diastolic dysfunction, (abnormal relaxation pattern). Procedure Details * A complete two-dimensional transthoracic echocardiogram was performed (2D, M-mode, Doppler and color flow Doppler). * A contrast injection of Definity was performed to improve assessment of LV function. * Contrast was injected into an intravenous site in the right arm. * One vial of Definity ultrasound contrast was diluted in normal saline to a total volume of 10 ml. A total of '2' ml of solution was administered during imaging. * Lot # [id number] of Definity utilized for procedure. * Expiration date FEB 26. * The attending nurse who injected the contrast agent was Serge Cowart RN. Left Ventricle * The left ventricle is normal in size. * There is mild concentric left ventricular hypertrophy. * Left ventricular systolic function is normal. * Ejection Fraction = 60-65%. * The left ventricular wall motion is normal. * No regional wall motion abnormalities noted. Right Ventricle * The right ventricle is normal size. * The right ventricular systolic function is normal as assessed by tricuspid annular plane systolic excursion (TAPSE) (normal >1.5 cm). Atria * The left atrial size is normal. * Right atrial size is normal. * There is no evidence of atrial septal defect, but resolution does not allow assessment for a patent foramen ovale. Mitral Valve * There is mild mitral annular calcification. * There is no mitral valve stenosis. * There is trace mitral regurgitation. Tricuspid Valve * The tricuspid valve is normal. * There is no tricuspid stenosis. * There is mild tricuspid regurgitation. * Doppler findings do not suggest pulmonary hypertension. Aortic Valve * The aortic valve is trileaflet. * Aortic valve sclerosis mild, without significant aortic valvular stenosis. * Aortic stenosis is absent. * There is no significant aortic regurgitation. Pulmonic Valve * The pulmonary valve is not well seen, but the Doppler examination is normal without significant regurgitation or stenosis. Great Vessels * The aortic root and proximal ascending aorta are normal sized. Pericardium/Pleural * There is no pericardial effusion. Great Vessels * Normal inferior vena cava diameter and respiratory variation suggests normal central venous pressure. Left Ventricular Diastolic Function * Grade I diastolic dysfunction, (abnormal relaxation pattern). MMode 2D Measurements and Calculations IVSd 1.2 cm LVIDd 6.2 cm LVIDs 3.9 cm LVPWd 1.1 cm IVS/LVPW 1.0 FS 37.8 % EDV(Teich) 194.4 ml ESV(Teich) 64.3 ml EF(Teich) 66.9 % EDV(cubed) 239.1 ml ESV(cubed) 57.5 ml EF(cubed) 75.9 % LV mass(C)d 308.5 grams LV mass(C)dI 116.0 grams/m\S\2 CO(Teich) 6.6 l/min CI(Teich) 2.5 l/min/m\S\2 SV(Teich) 130.1 ml SI(Teich) 48.9 ml/m\S\2 CO(cubed) 9.3 l/min CI(cubed) 3.5 l/min/m\S\2 SV(cubed) 181.5 ml SI(cubed) 68.3 ml/m\S\2 Ao root diam 2.4 cm Ao root area 4.4 cm\S\2 ACS 2.0 cm LA dimension 4.0 cm asc Aorta Diam 3.7 cm LA/Ao 1.7 LVOT diam 2.0 cm LVOT area 3.3 cm\S\2 LVAd ap4 47.1 cm\S\2 LVLd ap4 10.3 cm EDV(MOD-sp4) 180.0 ml LVAs ap4 23.7 cm\S\2 LVLs ap4 7.9 cm ESV(MOD-sp4) 58.6 ml EF(MOD-sp4) 67.4 % LVAd ap2 40.5 cm\S\2 LVLd ap2 8.6 cm EDV(MOD-sp2) 159.0 ml LVAs ap2 23.9 cm\S\2 LVLs ap2 8.1 cm ESV(MOD-sp2) 59.9 ml EF(MOD-sp2) 62.3 % CO(MOD-sp4) 6.2 l/min CI(MOD-sp4) 2.3 l/min/m\S\2 SV(MOD-sp4) 121.4 ml SI(MOD-sp4) 45.7 ml/m\S\2 CO(MOD-sp2) 5.1 l/min CI(MOD-sp2) 1.9 l/min/m\S\2 SV(MOD-sp2) 99.1 ml SI(MOD-sp2) 37.3 ml/m\S\2 Doppler Measurements and Calculations MV E max leanna 80.0 cm/sec MV A max leanna 78.6 cm/sec MV E/A 1.0 MV dec time 0.26 sec Ao V2 max 171.0 cm/sec Ao max PG 11.7 mmHg Ao max PG (full) 4.8 mmHg BALJIT(V,A) 2.5 cm\S\2 BALJIT(V,D) 2.5 cm\S\2 LV V1 max PG 6.9 mmHg LV V1 max 131.4 cm/sec PA acc slope 309.4 cm/sec\S\2 PA acc time 0.21 sec PA pr(Accel) -17.65 mmHg
--- NOTE | 2017-01-18 13:30 | Progress Note ---
Internal Med Progress Note Date of Service: Jan 18, 2017. Provider Documentation: SUBJECTIVE: Patient is doing better Denies any chest pain, SOB, sweating, palpitations, diaphoresis, headaches, blurry vision Tele- HR in 50s OBJECTIVE: Vital Signs-as noted below Exam: General-AAOX3, anxious + HEENT- Nasal fracture + Lungs-AEBE, no wheezing, rhonchi Heart-S1, S2 normal Extremities-No edema Neuro- AAOX3, No gross focal deficits. Lab data as noted below. ASSESSMENT & PLAN: 56 yo M with significant CAD presents with syncope, subsequent nasal fracture and found to have NSTEMI in local ER, transferred to [facility] for definitive care. SYNCOPE Likely secondary to Medication changes leading to decrease in BP. Recently Imdur dose was increased from 60 mg to 120 mg and since than he has been having dizziness, especially with change in position. He says he does feel it coming and most of the times was okay, but this time passed out hitting the pavement. -Tele- Sinus bradycardia which is chronic per him, but no arrhythmias noted; Orthostats negative, Echo ordered -Medication changes - Decrease Imdur to 60 mg from 120 mg. Continue rest of the home medications HYPERTENSION, UNCONTROLLED BP went up to 200s today, now down to 150s -Continue with Lisinopril 20 mg PO BID, Metoprolol 75 mg PO BID, Chlorthalidone 25 mg daily, Clonidine 0.1 mg daily which are his home medications -Monitor closely ELEVATED TROPONIN Troponin 1.840--> 1.330. Likely secondary to HTN, uncontrolled -No cardiac symptoms prior to syncope. No complaints since admission. Per patient, his troponin is always elevated. Evleia does have significant CAD with 2 recent heart caths in 2 months. Last cath in November 2016- revealing 50% LM blockage, RCA in-stent stenosis of 100% with collateral flow, a patent stent in the LAD and diffuse non-obstructive disease. Not a candidate for CABG and medical management has been recommended -Follow up Echo -Cardiology on board. NASAL FRACTURE S/P FALL -Per ortho, no plans for surgery -Surgicel applied and needs to be removed prior to discharge. Bacitracin for wound care. GCA/POLYARTHRITIS- Managed by rheumatology as outpatient -Continue with MTX every wednesday. No acute issues at this time CKD III -Stable. Baseline -Avoid nephrotoxics ANXIETY -Xanax PRN OBESITY DVT proph-heparin because of size of patient and h/o CKD FULL CODE DISPOSITION Very eager to be discharged and anxious. Requesting to be discharged by today evening/ Awaiting Echo results, cardiology inputs Vital Signs: Date Time Temp Pulse Resp B/P (MAP) Pulse Ox O2 Delivery O2 Flow Rate FiO2 01/18/17 12:00 Room Air 01/18/17 11:11 36.8 56 18 158/74 (102) 96 Room Air 01/18/17 08:00 Room Air 01/18/17 07:35 36.5 55 18 203/92 (129) 98 Room Air 01/18/17 04:00 36.3 56 20 179/71 (107) 98 Room Air 01/18/17 04:00 Room Air 01/18/17 00:15 Room Air 01/18/17 00:01 36.7 51 18 168/82 (110) 96 Room Air 01/17/17 20:00 57 177/85 (115) 01/17/17 20:00 Room Air 01/17/17 18:38 36.3 53 16 187/89 99 Room Air Lab Results: Results Past 24 Hours Test 01/17/17 19:57 01/17/17 22:40 01/18/17 02:00 01/18/17 06:18 Range/Units White Blood Count 10.02 9.29 4.8-10.8 K/uL Red Blood Count 4.28 4.29 4.7-6.1 M/uL Hemoglobin 13.7 13.3 14.0-18.0 g/dL Hematocrit 39.0 39.0 42-52 % Mean Corpuscular Volume 91.1 90.9 80-100 fL Mean Corpuscular Hemoglobin 32.0 31.0 25-34 pg Mean Corpuscular Hemoglobin Concent 35.1 34.1 32-36 g/dl Platelet Count 186 179 130-400 K/uL Mean Platelet Volume 9.8 9.8 7.4-10.4 fL Neutrophils (%) (Auto) 71.9 % Lymphocytes (%) (Auto) 13.2 % Monocytes (%) (Auto) 9.7 % Eosinophils (%) (Auto) 4.4 % Basophils (%) (Auto) 0.5 % Neutrophils # (Auto) 7.21 1.4-6.5 K/uL Lymphocytes # (Auto) 1.32 1.2-3.4 K/uL Monocytes # (Auto) 0.97 0.11-0.59 K/uL Eosinophils # (Auto) 0.44 0-0.5 K/uL Basophils # (Auto) 0.05 0-0.2 K/uL RDW Standard Deviation 45.3 45.4 36.4-46.3 fL RDW Coefficient of Variation 14.0 14.0 11.5-14.5 % Immature Granulocyte % (Auto) 0.3 % Immature Granulocyte # (Auto) 0.03 0.00-0.02 K/uL Prothrombin Time 11.4 9.0-12.0 SECONDS Prothromb Time International Ratio 1.1 0.9-1.1 Sodium Level 140 137 136-145 mmol/L Potassium Level 4.6 4.5 3.5-5.1 mmol/L Chloride Level 104 104 98-107 mmol/L Carbon Dioxide Level 28 28 21-32 mmol/L Anion Gap 8.0 5.0 3-11 mmol/L Blood Urea Nitrogen 25 27 7-18 mg/dl Creatinine 1.20 1.20 0.60-1.40 mg/dl Est Creatinine Clear Calc Drug Dose 102.2 101.2 ml/min Estimated GFR () 76.8 76.8 Estimated GFR (Non- 66.3 66.3 BUN/Creatinine Ratio 20.6 22.3 10-20 Random Glucose 97 107 70-99 mg/dl Calcium Level 9.2 9.1 8.5-10.1 mg/dl Total Bilirubin 0.5 0.2-1 mg/dl Aspartate Amino Transf (AST/SGOT) 73 15-37 U/L Alanine Aminotransferase (ALT/SGPT) 116 12-78 U/L Alkaline Phosphatase 116 45-117 U/L Total Creatine Kinase 205 184 39-308 U/L Creatine Kinase MB 6.2 4.0 0.5-3.6 ng/ml Creatine Kinase MB Ratio 3.0 2.2 0-3.0 Troponin I 1.840 1.330 0-0.045 ng/ml Total Protein 7.5 6.4-8.2 gm/dl Albumin 3.7 3.4-5.0 gm/dl Globulin 3.8 2.5-4.0 gm/dl Albumin/Globulin Ratio 1.0 0.9-2 Urine Color YELLOW Urine Appearance CLEAR CLEAR Urine pH 5.5 4.5-7.5 Urine Specific Hardy 1.016 1.000-1.030 Urine Protein 3+ NEG Urine Glucose (UA) NEG NEG Urine Ketones NEG NEG Urine Occult Blood 1+ NEG Urine Nitrite NEG NEG Urine Bilirubin NEG NEG Urine Urobilinogen NEG NEG Urine Leukocyte Esterase NEG NEG Urine WBC (Auto) 1-5 0-5 /hpf Urine RBC (Auto) 0-4 0-4 /hpf Urine Hyaline Casts (Auto) 1-5 0-5 /lpf Urine Epithelial Cells (Auto) 5-10 0-5 /lpf Urine Bacteria (Auto) NEG NEG Triglycerides Level 303 0-150 mg/dl Cholesterol Level 184 0-200 mg/dl HDL Cholesterol 39 mg/dl LDL Cholesterol, Calculated 84 mg/dl VLDL Cholesterol, Calculated 61 mg/dl Cholesterol/HDL Ratio 4.7
[2017-01-18] MEDS ORDERED: METO50TA16 PO (13:47)
--- NOTE | 2017-01-18 13:55 | Discharge Instructions ---
Discharge Instructions Date of Service Jan 18, 2017. Admission Reason for Admission: Elevated Troponin, Syncope Discharge Discharge Diagnosis / Problem: 1. Syncope 2. HTN, uncontrolled 3. Nasal fracture post fall Discharge Goals Goal(s): Diagnostic testing, Therapeutic intervention Activity Recommendations Activity Limitations: resume your previous activity . Instructions / Follow-Up Instructions / Follow-Up MEDICATION CHANGES; 1. Metoprolol decreased to 50 mg PO BID from 75 mg PO BID due to low Heart rate MONITOR BP, HR outpatient FOLLOW UP 1.Follow up with PCP in 1 weekl. Please call for appt date/time 2. Keep your appt with building construction teacher 3. Follow up with orthopedics in 1 week Current Hospital Diet Patient's current hospital diet: Low Sodium Diet (2gm Na) Discharge Diet Recommended Diet: AHA Diet (Heart Healthy), Low Sodium Diet (2gm Na) Pending Studies Studies pending at discharge: no Laboratory Results Lipid Panel Test 01/18/17 06:18 Range/Units Triglycerides Level 303 H 0-150 mg/dl Cholesterol Level 184 0-200 mg/dl HDL Cholesterol 39 mg/dl Cholesterol/HDL Ratio 4.7 LDL Cholesterol, Calculated 84 mg/dl Medical Emergencies . Who to Call and When: Medical Emergencies: If at any time you feel your situation is an emergency, please call 911 immediately. . Non-Emergent Contact Non-Emergency issues call your: Primary Care Provider, Traffic Lieutenant . . "Provider Documentation" section prepared by Arianna Alfaro. . VTE Core Measure Inpt VTE Proph given/why not?: Unfractionated heparin SQ
--- NOTE | 2017-01-18 14:07 | Discharge Summary ---
Discharge Summary Date of Service Jan 18, 2017. Discharge Summary Admission Date: Jan 17, 2017 at 19:45 Discharge Date: Jan 18, 2017 Discharge Disposition: Home Principal Diagnosis: 1. Syncope likely related to medication 2. HTN, Uncontrolled 3. Nasal fracture post fall 4. Mildly elevated troponin, likely secondary to HTN Secondary Diagnoses/Problems: 1. CKD III 2. Anxiety 3. Obesity Procedures: -Tele monitoring -Echocardiogram -Serial EKG -Serial Troponin Consultations: Cardiology Orthopedics Pending Studies/Follow-Up: Instructions / Follow-Up Instructions / Follow-Up MEDICATION CHANGES; 1. Metoprolol decreased to 50 mg PO BID from 75 mg PO BID due to low Heart rate MONITOR BP, HR outpatient FOLLOW UP 1.Follow up with PCP in 1 weekl. Please call for appt date/time 2. Keep your appt with patient support assistant 3. Follow up with orthopedics in 1 week Medication Reconciliation Changed Medications: Metoprolol Tartrate (Lopressor) (Lopressor) 50 Mg Tab 50 MG PO BID for 30 Days, #60 TAB 5 Refills (Changed from: 75 MG; 90) Continued Medications: Albuterol Hfa (Ventolin Hfa) 200 Puffs/94009 Mcg Aers 2-4 PUFFS INH Q6H PRN for prn, #1 INHALER Alprazolam (Xanax) 0.5 Mg Tab 0.5 MG PO prn, TAB Ascorbic Acid (Ascorbic Acid) 1,000 Mg Tab 1 TAB PO DAILY Chlorthalidone (Hygroton) 25 Mg Tab 1 TAB PO DAILY for 30 Days, #30 TAB 5 Refills Clonidine Hcl (Catapres) 0.2 Mg Tab 1 TAB PO DAILY for 30 Days, #30 TAB 5 Refills Clopidogrel (Plavix) 75 Mg Tab 75 MG PO DAILY, TAB Isosorbide Mononitrate Ext Rel (Imdur Ext Rel) 60 Mg Ertab 60 MG PO QAM, TAB Lisinopril (Zestril) 10 Mg Tab 2 TAB PO BID for 30 Days, #120 TAB 5 Refills Methotrexate Sodium (Methotrexate) 2.5 Mg Tab 8 TAB PO WK for 28 Days, #32 TAB 2 Refills Pt takes on Sundays Nitroglycerin (Nitrostat) 0.3 Mg Tab 0.3 MG UT PRN, BTL Rosuvastatin Calcium (Crestor) 10 Mg Tab 1 TAB PO DAILY for 30 Days, #30 TAB 5 Refills Admission Information HPI (per Admitting provider): 56 yo M with severe CAD presents via transfer from [place] [facility] for NSTEMI. He was at [employer] today and reports feeling lightheaded after standing up , subsequently lost consciousness and fell into his car door and hit the pavement face first, breaking his nose. He takes ASA and Plavix and was profusely bleeding so EMS was called and he went to [place] [facility]. In the ER a troponin was elevated to 1.9. The patient was, and remains, symptom-free with respect to chest pain and shortness of breath. He does report intermittent lightheadedness for which he stops and rests, and then it will go away momentarily. He reports this became more noticeable after his Imdur was increased from 60mg to 120mg on 12/30. He has a h/o heart problems beginning in 2004 with multiple cardiac catheterizations, and subsequently received a stent in Jul 2015 and then two in Aug 2015. He then had an NSTEMI in Mar 2016 and underwent another cath with PCI. He established care with Dr. Borja in November 2016 who performed a LHC on him revealing 50% LM blockage, RCA in-stent stenosis of 100% with collateral flow, a patent stent in the LAD and diffuse non -obstructive disease. He was then referred to Dr. Flores in [place] for further assessment and options. Another diagnostic LHC was performed on 12/30, but per the patient, bypass is not an option at this point and he is left with minimal options aside from medical management. He is currently HD stable with a slightly elevated BP. He is ambulatory and is mentating well. He was admitted to telemetry for further monitoring overnight. EKG at OSH revealed SB without ST changes. Nasal lac was closed with sutures and a bandage was placed. CT head performed at OSH with disc sent. Nasal bone fracture is present with some fragmentation. No active bleeding from wound. Case was discussed with Dr. Johnson home demonstration agent who will see him in the morning. Heparin therapy was discussed if needed. Physical Exam (per Admitting): GEN: WNWD, in no acute distress, alert and appropriate, sitting up on edge of bed, no conversational dyspnea HEENT: trauma to nose with bandage covering sutures, hemostasis achieved, bandage is c/d/i, PERRL, normal sclerae/conjunctivae, soreness to zygomatic arches and sinuses bilaterally. Some soreness with palpation of frontal sinuses. Pharynx nonacute. CARDIO: reg rate, S1/2 heard without m/g/r LUNGS: CTA bilaterally, no crackles, rales or wheezes, good diaphragmatic excursion ABD: soft, non-tender, non-distended, +BS EXTREMITY: RP and DP palpable 2+ bilat, no LE swelling or edema, extremities are warm and well-perfused NEURO: CN 2-12 grossly intact, sensation intact throughout, coordination intact , (reflexes) knee 2/4 bilat MUSC: 5/5 strength throughout, moves all extremities equally SKIN: warm and dry and wound as above. Hospital Course 56 yo M with significant CAD presents with syncope, subsequent nasal fracture and found to have NSTEMI in local ER, transferred to [facility] for definitive care. SYNCOPE Likely secondary to Medication changes leading to decrease in BP. Recently Imdur dose was increased from 60 mg to 120 mg and since than he has been having dizziness, especially with change in position. He says he does feel it coming and most of the times was okay, but this time passed out hitting the pavement. -Tele- Sinus bradycardia which is chronic per him, but no arrhythmias noted; Orthostats negative, Echo - Mild LVH, EF 60-65%, Mild TR, MR, Gd I diastolic dysfunction. -Medication changes - Decreased Imdur to 60 mg from 120 mg. Continue rest of the home medications HYPERTENSION, UNCONTROLLED BP went up to 200s today, now down to 150s. Likely not getting clonidine his home medication contributing to rebound HTN -Continue with Lisinopril 20 mg PO BID, Chlorthalidone 25 mg daily, Clonidine 0.2 mg daily which are his home medications. Metoprolol decreased to 50 mg PO BID from 75 mg PO BID due to sinus bradycardia -Monitor closely outpatient ELEVATED TROPONIN Troponin 1.840--> 1.330. Likely secondary to HTN, uncontrolled -No cardiac symptoms prior to syncope. No complaints since admission. Per patient, his troponin is always elevated. Evelia does have significant CAD with 2 recent heart caths in 2 months. Last cath in November 2016- revealing 50% LM blockage, RCA in-stent stenosis of 100% with collateral flow, a patent stent in the LAD and diffuse non-obstructive disease. Not a candidate for CABG and medical management has been recommended -Echo- no new wall motion abnormalities, EF 60-65% -Cardiology on board. Cleared for discharge. Discussed with Dr Meek NASAL FRACTURE S/P FALL -Per ortho, no plans for surgery -Surgicel applied and needs to be removed prior to discharge. Bacitracin for wound care. Follow up with ortho in 1 week GCA/POLYARTHRITIS- Managed by rheumatology as outpatient -Continue with MTX every wednesday. No acute issues at this time CKD III -Stable. Baseline -Avoid nephrotoxics ANXIETY -Xanax PRN OBESITY DVT proph-heparin because of size of patient and h/o CKD FULL CODE DISPOSITION Very eager to be discharged and anxious. Requesting to be discharged by today evening/ Very anxious and wants to leave Discussed with cardiology- cleared for discharge to home with follow up outpatient Total time spent on discharge = 28 minutes This includes examination of the patient, discharge planning, medication reconciliation, and communication with other providers. Discharge Instructions Discharge Discharge Diagnosis / Problem: 1. Syncope 2. HTN, uncontrolled 3. Nasal fracture post fall Discharge Goals Goal(s): Diagnostic testing, Therapeutic intervention Activity Recommendations Activity Limitations: resume your previous activity . Instructions / Follow-Up Instructions / Follow-Up MEDICATION CHANGES; 1. Metoprolol decreased to 50 mg PO BID from 75 mg PO BID due to low Heart rate MONITOR BP, HR outpatient FOLLOW UP 1.Follow up with PCP in 1 weekl. Please call for appt date/time 2. Keep your appt with patient support assistant Current Hospital Diet Patient's current hospital diet: Low Sodium Diet (2gm Na) Discharge Diet Recommended Diet: AHA Diet (Heart Healthy), Low Sodium Diet (2gm Na) Pending Studies Studies pending at discharge: no Laboratory Results Lipid Panel Test 01/18/17 06:18 Range/Units Triglycerides Level 303 H 0-150 mg/dl Cholesterol Level 184 0-200 mg/dl HDL Cholesterol 39 mg/dl Cholesterol/HDL Ratio 4.7 LDL Cholesterol, Calculated 84 mg/dl Medical Emergencies . Who to Call and When: Medical Emergencies: If at any time you feel your situation is an emergency, please call 911 immediately. . Non-Emergent Contact Non-Emergency issues call your: Primary Care Provider, Director Sales Training . . "Provider Documentation" section prepared by Arianna Alfaro. . VTE Core Measure Inpt VTE Proph given/why not?: Unfractionated heparin SQ
--- NOTE | 2017-01-18 14:08 | Cardiology Consultation ---
Cardiology Consultation Date of Consultation: Jan 18, 2017 History of Present Illness Negro Jo is a 56 year old male seen in cardiology consultation for the evaluation of syncope and elevated troponin. The patient's primary scheduling administrator is Dr. Borja of our practice. The patient has a complex history of ischemic heart disease as delineated below. He underwent recent diagnostic cardiac catheterization with Dr. Borja at [facility] 12/08/2016 and underwent repeat cardiac catheterization with Dr. Flores [place] [facility] [place]. Ongoing medical management was recommended at that time. Yesterday the patient was in [place], [place] at [facility]. He had an episode of lightheadedness and fell into his car door and onto the pavement with resultant facial trauma. He presented to the ER [place] CT confirmed the presence of a nasal fracture. Significant laceration to subsequent sutured. His troponin was noted to be elevated given his complex cardiac history he was transferred to [facility] for further care. The patient has a history of exertional angina and is aggressive medication therapy. At the time of his recent discharge post cardiac catheterization on his isosorbide mononitrate dose was increased from 60 mg 120 mg. The patient believes that he has felt occasional lightheadedness with standing since that medication change. He has never had any significant passing out spells prior to yesterday except maybe one episode that placed 20 years ago. At present he feels well. He is eager for discharge. Past Medical/Surgical History Problem List: PAST MEDICAL HISTORY: 1. Chronic coronary heart disease with multiple past cardiac catheterization and cardiac interventions including LAD stent July 2015 in [place], right coronary artery stents in August 2015, and again in March 2016 at which time he had a drug-eluting stent placed in the ostium of the right coronary artery. -In November 2016 he underwent repeat cardiac catheterization for exertional shortness of breath and chest pressure as performed by Dr. Borja and was found to have a chronic total occlusion of the proximal right coronary artery at the previous ostial RCA stent. Left main stenosis in the range of 50% was noted at that time with nonobstructive irregularities in the LAD system and circumflex system. -The patient was referred for repeat cardiac catheterization which took place at [facility] [place] 12[place]30[place] to evaluate his chronic total occlusion of the right coronary artery. Per review of that report status the stents in the ostium of the right coronary artery hangs into the aorta, and this is not amenable to further percutaneous intervention. [id number] collaterals were noted from the LAD and circumflex territories to feed the distal RCA territory and ongoing medication management was recommended at that time. 2. Chart history of stage III chronic kidney disease although his kidney function has been stable recently 3. 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 History of giant cell arteritis followed by [facility] rheumatology 5. History of difficult to control hypertension 6. History of obstructive sleep apnea 7. Obesity PAST SURGICAL HISTORY: Multiple past cardiac catheterizations as noted above FAMILY HISTORY: Father with ischemic heart disease diagnosed in his 50s SOCIAL HISTORY: Patient is a retired he produces served in the [employer] as well as the [employer]. He also served in the [employer] retired several years ago. He is and has never smoked or used smokeless tobacco Family History FH: Alzheimers disease MOTHER FH: CAD (coronary artery disease) FATHER, Onset:50 MOTHER FH: stroke FATHER Social History Smoking Status: Never Smoker Smokeless Tobacco Use: No Alcohol Use: socially Drug Use: none Marital Status: Housing Status: lives with significant other Occupation: retired Review Of Systems See above for pertinent positives & negatives. A total of 10 systems reviewed and were otherwise negative. Allergies Coded Allergies: Propofol (Unverified Allergy, Mild, GI SYMPTOMS, 12/08/16) Fluticasone (Verified Allergy, Unknown, SHORTNESS OF BREATH, 12/08/16) Salmeterol (Verified Allergy, Unknown, SHORTNESS OF BREATH, 12/08/16) Medications Reported Home Medications Medications Dose Route/Sig Max Daily Dose Days Date Category Dose Instructions Plavix (Clopidogrel Bisulfate) 75 Mg Tab 75 Mg PO DAILY 12/08/16 Reported Nitrostat (Nitroglycerin) 0.3 Mg Tab 0.3 Mg UT PRN 12/08/16 Reported Ventolin Hfa (Albuterol) 200 Puffs/44765 Mcg Aers 2-4 Puffs INH Q6H PRN 12/08/16 Reported Xanax (Alprazolam) 0.5 Mg Tab 0.5 Mg PO PRN 12/08/16 Reported Hygroton (Chlorthalidone) 25 Mg Tab 1 Tab PO DAILY 30 12/08/16 Reported Lopressor (Metoprolol Tartrate) 50 Mg Tab 75 Mg PO BID 30 12/08/16 Reported Crestor (Rosuvastatin Calcium) 10 Mg Tab 1 Tab PO DAILY 30 12/08/16 Reported Catapres (Clonidine Hcl) 0.2 Mg Tab 1 Tab PO DAILY 30 12/08/16 Reported Imdur Ext Rel (Isosorbide Mononitrate) 60 Mg Ertab 60 Mg PO QAM 12/08/16 Reported Ascorbic Acid 1,000 Mg Tab 1 Tab PO DAILY 12/08/16 Reported Methotrexate (Methotrexate Sodium) 2.5 Mg Tab 8 Tab PO WK 28 12/08/16 Reported Pt takes on Sundays Zestril (Lisinopril) 10 Mg Tab 2 Tab PO BID 30 12/08/16 Reported Physical Exam Vital Signs (Last 8hrs): Last 8 Hrs Date Time Temp Pulse Resp B/P (MAP) Pulse Ox O2 Delivery O2 Flow Rate FiO2 01/18/17 12:00 Room Air 01/18/17 11:11 36.8 56 18 158/74 (102) 96 Room Air 01/18/17 08:00 Room Air 01/18/17 07:35 36.5 55 18 203/92 (129) 98 Room Air General Appearance: Alert and Oriented x3. NAD. Head: Normocephalic Atraumatic. Eyes: PERRLA, EOMI, laceration on nose noted, sutured. Neck: Supple. No carotid bruits noted. No JVD. No HJD. Respiratory: Breath sounds clear to auscultation bilaterally. No w/r/r. Cardiovascular: Reg rate and rhythm. S1 and S2 noted. No murmurs, rubs, gallops. PMI non displace. Abdomen: Normal bowel sounds, soft nontender. no abdominal bruits. Extremities: No edema, no clubbing or cyanosis. distal pulses 2/4 bilaterally. Neuro: No focal deficits. Psychiatric: Normal affect. Data Last Resulted 01/18/17 06:18 Last Resulted 01/18/17 06:18 Past 24 Hours Test 01/17/17 19:57 01/18/17 02:00 Range/Units Creatine Kinase MB 6.2 H 4.0 H 0.5-3.6 ng/ml Creatine Kinase MB Ratio 3.0 2.2 0-3.0 Prothromb Time International Ratio 1.1 0.9-1.1 Prothrombin Time 11.4 9.0-12.0 SECONDS Total Creatine Kinase 205 184 39-308 U/L Troponin I 1.840 *H 1.330 *H 0-0.045 ng/ml EKG performed on arrival yesterday reveals sinus bradycardia 57 bpm range with no ST segment changes Telemetry reviewed: Telemetry reveals sinus bradycardia D5 beat per minute range , with occasional heart rates down to 40 bpm. A 3 beat Ventricular run took place 3:54 AM. Assessment & Plan Impression: 56-year-old male 1. Syncope, history corresponds with recent lightheadedness after his antianginal medication was intensified increase in isosorbide mononitrate extended-release 60 mg 120 mg. The patient however has had significant hypertension over night and early this morning with a blood pressure first and this morning of 203/92, which has since improved to 150/70 fourth administration of his morning medications. 2. Elevated troponin, by clinical presentation I think this beats the definition of a type II demand induced myocardial infarction with patient having had a dramatic syncopal event with nasal fracture the setting of chronic coronary artery disease and his elevated troponin is likely due to supply demand mismatch in the setting of stable coronary disease. I do not think the elevation in troponin is due to an acute intracoronary plaque rupture. 3. Chronic exertional angina, chronic coronary heart disease, with proximal RCA stenosis not amenable to revascularization by percutaneous approach, with noted left to right collaterals on his most recent cardiac catheterizations. Recommendations: Recommend reducing the isosorbide mononitrate from his home dose 120 mg His prior doses 60 mg by mouth daily. Reduce metoprolol tartrate from 75 mg twice a day to 50 mg twice a day given his bradycardia. The patient notes long-standing history of relative low heart rates. The risk of reducing his metoprolol instead his angina may become worse and this will have to be reassessed as an outpatient I think at present given his significant syncopal episode this is the appropriate thing to do. I do not think the patient warrants repeat ischemic workup at the present time. His high blood pressure. Due to the fact that he typically takes clonidine 0.2 mg daily in the morning as compared to twice a day as noted on his medication list from his outpatient chart. He has missed his clonidine while here for now but his blood pressure is stable at present I recommend we just resume his clonidine dose tomorrow. Patient has had a resting echocardiogram reveals no new wall motion abnormality is preserved LVEF. Disposition: Stable for discharge to home from a cardiac standpoint. He is to keep his follow-up visit as planned with Dr. Borja on 01/26/17. Freddy Meek DO, FACC, FACOI Associate Product Inspection Coordinator [facility]
[2017-01-18 14:20] VITALS: BP 158/74; PULSE 56; TEMP 36.8; O2SAT 96
[2017-01-18] MEDS ORDERED: METOPROLOL TARTRATE 50 MG TAB PO SCH (21:00)
[2017-01-24] MEDS ORDERED: METHOTREXATE 2.5 MG TAB PO SCH (09:00)
== END 2017-01-18 15:03 | disposition home or self-care (01) ==
LOC: C.2T 18:31 → UNDOADMOB 18:31 → INTOOBSV 18:31 → C.2T 19:45
PROVIDERS: ADMIT Hospitalist; ATTEND Internal Medicine
DX: R55 Syncope and collapse (principal); I25.10 Atherosclerotic heart disease of native coronary artery without angina pectoris; I25.2 Old myocardial infarction; I12.9 Hypertensive chronic kidney disease with stage 1 through stage 4 chronic kidney disease, or unspecified chronic kidney disease; N18.3 Chronic kidney disease, stage 3 (moderate); E78.5 Hyperlipidemia, unspecified; S02.2XXA Fracture of nasal bones, initial encounter for closed fracture; W19.XXXA Unspecified fall, initial encounter; F41.9 Anxiety disorder, unspecified; E66.9 Obesity, unspecified; M26.609 Unspecified temporomandibular joint disorder, unspecified side; M31.6 Other giant cell arteritis; M13.0 Polyarthritis, unspecified; Z79.82 Long term (current) use of aspirin; Z79.899 Other long term (current) drug therapy; Z79.02 Long term (current) use of antithrombotics/antiplatelets